=== PATIENT | male | born 1965 | race Caucasian/White ===

== ENCOUNTER 2024-10-09 19:25 | Emergency (ER) | payer MEDICAID ==
[~2024-10-09] VITALS: Ht 175.3 cm; Wt 63.1 kg
[2024-10-09 19:26] VITALS: BP 144/86; PULSE 78; RESP 20; O2SAT 20
[2024-10-09] MEDS: LORazepam 1 MG tablet PO ONE (20:19)
[2024-10-09 20:37] VITALS: TEMP 97.8
== END 2024-10-09 20:39 | disposition home or self-care (01) ==
LOC: ER 19:26
DX: F41.0 Panic disorder [episodic paroxysmal anxiety] (principal); T43.295A Adverse effect of other antidepressants, initial encounter; T50.7X5A Adverse effect of analeptics and opioid receptor antagonists, initial encounter; F32.A Depression, unspecified; F10.10 Alcohol abuse, uncomplicated; Y90.9 Presence of alcohol in blood, level not specified; Y92.89 Other specified places as the place of occurrence of the external cause
CPT/HCPCS: 99283